=== PATIENT | female | born 1945 | race Caucasian/White ===

== ENCOUNTER 2016-08-01 09:32 | Emergency (ER) | payer MEDICARE, OTHER ==
--- OUTSIDE RECORDS SUMMARY | 2016-08-01 10:55 | XMS REPORT | Continuity of Care Document ---
:1945 Author Organization [facility] ([facility]) Address [address] [place] [address] Phone [phone] Care Team Providers Name Role Phone [phone], Need To Check Primary Care Provider Unavailable Source Comments This disclosure is being made pursuant to the Care Everywhere program, applicable federal and state laws, and may not contain all informaitonavailable regarding this patient.[facility] ([facility]) Active Allergies and Adverse Reactions Not on File Current Medications Not on file Active Problems Not on file Social History Tobacco Use Types Packs/Day Years Used Date Never Assessed Plan of Care Date Type Specialty Providers Description 11/28/2016 Appointment [facility] Anastasiia Benites, Chief Comp: Patient PsyD Reported Reason For [address] [place] [address] [phone] (Fax) Health Maintenance Due Date Last Done Comments HCV Screening 1945 Hepatitis B Vaccine (1 of 3 - Primary Series) 1945 Tdap Vaccine 1957 Lipid Disorder Screening 01/06/1964 Td Vaccine 01/06/1964 Mammogram 1986 Colonoscopy 1996 Zoster Vaccine 2006 Osteoporosis Screening (DXA Bone Density) 2011 Pneumococcal Vaccine (1 of 2 - PCV13) 2011 Influenza Vaccine: Seasonal (#1) 12/12/2015 Results from Last 3 Months Not on file
--- NOTE | 2016-08-01 11:22 | ERNOTE ---
Medical Problem HPI - Narrative Date of Service: 08/01/16 - General Chief Complaint: General Assessment Time Seen by Provider: 08/01/16 10:25 Source: patient, family, RN notes reviewed Exam Limitations: no limitations - Immun/Allergies/Home Medications Immunizations: IMMUNIZATION HX Immunizations Up to Date Yes History of Influenza Vaccine No Hx Pneumococcal Vaccination Yes Allergies/Adverse Reactions: Allergies codeine Allergy (Verified 08/01/16 09:46) Hives hydrocodone Adverse Reaction (Verified 08/01/16 09:45) Vomiting Home Medications: HOME MEDICATIONS Zolpidem Tartrate [Ambien] 5 mg PO HS #14 tablet 08/01/16 [Last Taken Unknown] - History of Present History Narrative: Noemy is a very pleasant 71 year old female who presents to the ED with her by private vehicle for insomnia. She has had problems sleeping off and on throughout her entire life, but it has been much worse since she broke her ankle almost a year ago. She currently has not been able to sleep for 3 days. She has seen her PCP about this and was prescribed Xanax. She is aware that this is not something that she can take all the time, nor does she want to. She was referred to a neurologist in [place], [place]. This was not helpful at all. She has an appointment with a different neurologist at [facility] in November. She has no chronic medical problems and takes no routine medication. She is retired and looks much younger than her actual age. She denies problems with anxiety or depression, but reports having trouble shutting her brain off. Her states she has always been "absent minded." Review of Systems - Review of Systems Constitutional: Present: recent illness, fatigue. Absent: fever, chills, malaise EYE: Present: no symptoms reported ENT: Absent: nose congestion, nasal drainage Respiratory: Absent: shortness of breath, orthopnea Cardiology: Absent: chest pain, edema Gastrointestinal/Abdominal: Absent: eating less, drinking less Genitourinary: Present: no symptoms reported Musculoskeletal: Absent: muscle pain, joint pain Skin: Absent: rash, lesions, lumps Neurological: Absent: headache, dizziness/light-headedness Endocrine: Absent: excessive sweating, intolerance to heat, increased thirst, increased urine, unexplained weight loss Hematologic/Lymphatic: Present: no symptoms reported Psych: Absent: anxiety, depressed, emotional problems - Patient's Past Medical History Patient History - Medical: Other - Gastric ulcer Patient History - Cardiac/Respiratory: No pertinent hx Patient History - Cancer: No Hx of Cancer Patient History - Surgical Procedures: Orthopedic - Right foot fracture LMP (females 10-50): Menopausal - Social History Living Situations: spouse Psych History: No pertinent hx Smoking Status: Never smoker Alcohol Use: none Drug Use: none - Immunizations Immunizations Up to Date: Yes Hx Pneumococcal Vaccination: Yes History of Influenza Vaccine: No Physical Exam - Physical Exam General Appearance: Present: wd/wn, alert, no apparent distress, other - appropriately dressed and groomed, appears younger than stated age Eye Exam: Normal inspection: bilateral Ears, Nose, Throat: Present: normal ENT inspection Neck: Present: normal inspection, nontender, supple. Absent: thyromegaly Respiratory: Present: no respiratory distress, normal breath sounds, no accessory muscle use, lungs clear Cardiovascular/Chest: Present: regular rate, rhythm, no murmur Extremity Exam: Present: normal inspection, no edema Neurological Exam: Present: alert, oriented, normal mood/affect, no motor/ sensory deficits Skin Exam: Present: normal color, warm/dry ED Progress - Results and Orders Patient's Lab Results:: I have reviewed the patient's lab results. - Vital Signs Patient's Vital Signs:: I have reviewed the patient's vital signs. Vital Signs: Vital Signs 08/01/16 09:40 Temperature 36.7 C Pulse Rate 90 Respiratory 12 Rate Blood Pressure 140/81 O2 Sat by Pulse 100 Oximetry - Progress/Reassessment Chief Complaint: General Assessment Progress:: Improved Plan - Plan Plan: Discussed patient with Naomi Ferguson [employer]TING [employer]. She will see the patient next week. Recommended thyroid labwork, ordered here. Also recommended low dose Ambien for now so patient could have some relief from her symptoms in the meantime. Patient and seem pleased to have some help with the issue, as her PCP and neurology have not done much for the problem thus far. Departure - Departure Clinical Impression: Insomnia disorder Qualifiers: Insomnia type: unspecified Qualified Code(s): G47.00 - Insomnia, unspecified Disposition: Home Follow Up Needed Condition: Stable Instructions: Insomnia Additional Instructions: See Naomi Ferguson as scheduled Ambien will cause drowsiness - be careful with activities that require you to be alert until you know how it effects you Referrals: Naomi Mckenna ARNP [[facility]] - 08/06/16 1:00 pm Prescriptions: Zolpidem Tartrate [Ambien] 5 mg PO HS #14 tablet
[2016-08-01 12:00] LABS: Albumin * 3.6 gm/dl (3.4-5.0); Anion Gap 11.9 mmol/L (6.8-13.8); BUN/Creatinine Ratio 26.7 (9.0-21.6); Bilirubin, Total 0.5 mg/dL (0.0-1.1); Ca. Corrected For Albumin 8.7 mg/dL (8.4-10.2); Calcium * 8.7 mg/dL (7.9-10.9); Carbon Dioxide 29.9 mmol/L (24-32.6); Hematocrit 44.4 % (37.0-47.0); Hemoglobin 15.3 gm/dL (12.5-16.0); Mean Cell Volume 87.9 fl (78-100); Mean Corpuscular Hemoglobin 30.3 pg (27-31); Mean Corpuscular Hgb Conc 34.5 g/dl (32-36); Mean Platelet Volume 8.7 fl (6.0-9.5); Neutrophil # 5.1 K/mm3 (1.3-6.0); Neutrophil % 64.6 % (42-75.0); Platelet Count 234 K/mm3 (150-450); Potassium 3.8 mmol/L (3.4-4.6); Red Blood Count 5.05 M/mm3 (4.2-5.4); Red Cell Distribution Width 13.1 % (11.5-14.0); T4 Free * 1.42 ng/dL (0.76-1.46); TSH * 2.375 uIU/mL (0.358-3.74); White Blood Count 7.9 K/mm3 (4.0-10.5)
[2016-08-01 13:49] VITALS: BP 137/65
== END 2016-08-01 12:12 | disposition home or self-care (01) ==
LOC: ER 09:32
DX: G47.00 Insomnia, unspecified (principal)